=== PATIENT | female | born 1945 | race Caucasian/White ===

== ENCOUNTER → 2016-08-23 | Outpatient (CLI) | payer MEDICARE, BC | LOC: KOH-I 16:30 | DX: R10.32 Left lower quadrant pain (principal); N20.0 Calculus of kidney; K57.32 Diverticulitis of large intestine without perforation or abscess without bleeding | CPT/HCPCS: 74176 ==

== ENCOUNTER 2016-10-14 18:02 | Emergency (ER) | payer MEDICARE, BC ==
[2016-10-14 19:52] LABS: HEMOGLOBIN 13.2 gm/dl (12.3-15.3); RED BLOOD COUNT 4.27 M/UL (4.00-5.10); WHITE BLOOD COUNT 5.3 K/UL (4.5-11.0)
[2016-10-14 20:15] LABS: BUN/CREATININE RATIO 20 (0-10)
== END 2016-10-15 00:35 | disposition home or self-care (01) ==
LOC: ER1 18:02
PROVIDERS: Emergency Medicine
DX: R42 Dizziness and giddiness (principal); N39.0 Urinary tract infection, site not specified; I25.10 Atherosclerotic heart disease of native coronary artery without angina pectoris; I10 Essential (primary) hypertension; E11.9 Type 2 diabetes mellitus without complications; E07.9 Disorder of thyroid, unspecified; Z90.49 Acquired absence of other specified parts of digestive tract; Z88.2 Allergy status to sulfonamides; Z79.84 Long term (current) use of oral hypoglycemic drugs; Z79.899 Other long term (current) drug therapy
CPT/HCPCS: 36415; 70450; 71010; 80053; 81001; 82550; 82553; 83874; 84484; 85025; 87077; 87086; 87186; 93005; 96374; 99284; J2405

== ENCOUNTER → 2020-07-30 | Outpatient (CLI) | payer MEDICARE, OTHER ==
[~2020-07-30] MED LIST: CEPHALEXIN500 MG PO; FLAGYL500 MG PO; VIBRAMYCIN100 MG PO; ZOFRAN ODT 4 MG4 MG PO
== END ==
LOC: CT 12:58
DX: R10.32 Left lower quadrant pain (principal); N20.0 Calculus of kidney; K57.30 Diverticulosis of large intestine without perforation or abscess without bleeding

== ENCOUNTER 2020-10-07 12:46 | Emergency (ER) | payer MEDICARE ==
[~2020-10-07 12:46] MED LIST changes: -CEPHALEXIN500 MG PO; -ZOFRAN ODT 4 MG4 MG PO
[2020-10-07 15:03] LABS: HEMOGLOBIN 14.1 gm/dl (12.3-15.3); RED BLOOD COUNT 4.53 M/UL (4.00-5.10); WHITE BLOOD COUNT 7.2 K/UL (4.5-11.0)
[2020-10-07 15:28] LABS: BUN/CREATININE RATIO 19 (0-10)
[2020-10-07] MEDS ORDERED: CEPHALEXIN500 MG PO (16:05)
[2020-10-07] MEDS ORDERED: ZOFRAN ODT 4 MG4 MG PO (16:05)
== END 2020-10-07 16:40 | disposition home or self-care (01) ==
LOC: ER1 12:46
PROVIDERS: Physician Assistant
DX: N39.0 Urinary tract infection, site not specified (principal); N13.2 Hydronephrosis with renal and ureteral calculous obstruction; Z90.49 Acquired absence of other specified parts of digestive tract; Z88.0 Allergy status to penicillin; Z88.2 Allergy status to sulfonamides; Z88.1 Allergy status to other antibiotic agents; Z88.5 Allergy status to narcotic agent; Z88.8 Allergy status to other drugs, medicaments and biological substances; Z90.710 Acquired absence of both cervix and uterus
CPT/HCPCS: 80053; 81001; 83690; 85025; 87077; 87086; 87186; 96372; 99284; J0696

== ENCOUNTER → 2020-12-31 | Outpatient (CLI) | payer MEDICARE ==
[~2020-12-31] MED LIST changes: +CEPHALEXIN500 MG PO; +ZOFRAN ODT 4 MG4 MG PO
== END ==
LOC: LBRF 13:40
DX: R30.0 Dysuria (principal)
CPT/HCPCS: 87077; 87086; 87186

== ENCOUNTER → 2021-01-19 | Outpatient (CLI) | payer MEDICARE ==
[2021-01-19 13:55] LABS: BUN/CREATININE RATIO 18 (0-10)
== END ==
LOC: LAB 12:07
PROVIDERS: Emergency Medicine
DX: E11.9 Type 2 diabetes mellitus without complications (principal); E04.2 Nontoxic multinodular goiter; Z79.899 Other long term (current) drug therapy
CPT/HCPCS: 36415; 76536; 80053; 80061; 83036; 84439; 84443

== ENCOUNTER → 2021-08-27 | Outpatient (CLI) | payer MEDICARE | LOC: NM 07:52 | DX: R14.0 Abdominal distension (gaseous) (principal); K30 Functional dyspepsia | CPT/HCPCS: 78264; A9541 ==

== ENCOUNTER → 2022-01-21 | Outpatient (CLI) | payer MEDICARE | LOC: KOH-I 01-17 13:30 → US 01-19 15:30 → KOH-I 01-19 15:30 → US 13:23 | DX: E04.2 Nontoxic multinodular goiter (principal); Z79.899 Other long term (current) drug therapy | CPT/HCPCS: 36415; 76536; 84439; 84443 ==